=== PATIENT | female | born 1985 | race Caucasian/White ===

== ENCOUNTER 2019-03-23 21:26 | Emergency (ER) | payer OTHER ==
--- NOTE | 2019-03-23 21:49 | ER Document Report ---
ED Medical Screen (RME) - General Chief Complaint: Alcohol Withdrawl Stated Complaint: ALCOHOL WITHDRAWAL Time Seen by Provider: 03/23/19 21:45 Mode of Arrival: Ambulatory Information source: Patient Notes: 33-year-old female presents with history of alcohol abuse. Reports she was stable here for many years and relapsed 4 days ago and used meth also. Patient is calm reports she drank today approximately 5th of vodka. Last drink was at 2030.. Denies other past medical history such as asthma cardiac disease diabetes. Denies vomiting diarrhea. Reports she is having trouble resting. Heart feels like it is racing. I have greeted and performed a rapid initial assessment of this patient. A comprehensive ED assessment and evaluation of the patient, analysis of test results and completion of the medical decision making process will be conducted by additional ED providers. Dictation of this chart was performed using voice recognition software; therefore, there may be some unintended grammatical errors. - Related Data Allergies/Adverse Reactions: No Known Allergies Allergy (Verified 03/23/19 21:45) Physical Exam - Vital signs Vitals: Temp Pulse Resp BP Pulse Ox 98.0 F 121 H 18 132/94 H 97 03/23/19 21:42 03/23/19 21:42 03/23/19 21:42 03/23/19 21:42 03/23/19 21:42 Course - Vital Signs Vital signs: Temp Pulse Resp BP Pulse Ox 98.0 F 121 H 18 132/94 H 97 03/23/19 21:42 03/23/19 21:42 03/23/19 21:42 03/23/19 21:42 03/23/19 21:42
[2019-03-23 22:24] LABS: ABSOLUTE EOSINOPHILS # (AUTO) 0.1 10^3/uL (0.0-0.6); ABSOLUTE LYMPHOCYTES (AUTO) 2.6 10^3/uL (0.5-4.7); ABSOLUTE MONOCYTES (AUTO) 0.6 10^3/uL (0.1-1.4); ABSOLUTE NEUT (AUTO) 6.1 10^3/uL (1.7-8.2); BASOPHILS % (AUTO) 0.5 % (0-2); EOSINOPHILS % (AUTO) 0.9 % (0-6); HEMATOCRIT 43.4 % (36.0-47.0); LYMPHOCYTES % (AUTO) 28.1 % (13-45); MEAN CORPUSCULAR HEMOGLOBIN 32.1 pg (27.0-33.4); MEAN CORPUSCULAR HGB CONC 34.6 g/dL (32.0-36.0); MEAN CORPUSCULAR VOLUME 93 fl (80-97); PLATELET COUNT 266 10^3/uL (150-450); RED BLOOD COUNT 4.68 10^6/uL (3.72-5.28); RED CELL DISTRIBUTION WIDTH 13.7 % (11.5-14.0); SEGMENTED NEUTROPHILS % (AUTO) 64.5 % (42-78); TOTAL CELLS COUNTED % (AUTO) 100 %; WHITE BLOOD COUNT 9.4 10^3/uL (4.0-10.5)
[2019-03-23] MEDS ORDERED: LORAZEPAM INJ 2 MG/1 ML VIAL IV ONE (22:25)
[2019-03-23] MEDS ORDERED: NORMAL SALINE 1000 ML 1,000 ML IV ONE (22:25)
--- NOTE | 2019-03-23 22:27 | ER Document Report ---
ED Substance Abuse / Acc. OD - General Chief Complaint: ETOH Abuse Stated Complaint: ALCOHOL WITHDRAWAL Time Seen by Provider: 03/23/19 21:45 Mode of Arrival: Ambulatory Notes: Patient is a 33-year-old female that comes to the emergency department for chief complaint of substance abuse. She states that she has a history of alcohol abuse, she states that 4 days ago she relapsed and started drinking, she states that she is intoxicated over the past day and made the mistake of smoking meth, she states she has never used meth before, she states that she started getting sensation of her heart racing and tingling in her hands and became concerned. She also states she got nauseated. She denies chest pain, difficulty breathing, vomiting, fever. She denies ever using IV drugs. She states she is never used recreational drugs previously to this. She states she does have a sponsor and she has been extremely successful with not drinking. She states she drank because she feels empowered when she does so, she states she was not depressed or suicidal, she states she has never attempted suicide, she denies history of mental illness, she just tells me she has a history of alcohol dependence. She states the last time she relapsed she was able to get on Librium and successfully got off alcohol for a long extended period of time. She states she does take Zoloft but she denies medications otherwise. She denies . - Related Data Allergies/Adverse Reactions: No Known Allergies Allergy (Verified 03/23/19 21:45) Past Medical History - General Information source: Patient - Social History Smoking Status: Current Every Day Smoker Frequency of alcohol use: Heavy Drug Abuse: Methamphetamine Lives with: Friend Family History: Reviewed & Not Pertinent Patient has suicidal ideation: No Patient has homicidal ideation: No - Immunizations Immunizations up to date: Yes Hx Diphtheria, Pertussis, Tetanus Vaccination: Yes Review of Systems - Review of Systems Constitutional: See HPI EENT: No symptoms reported Cardiovascular: See HPI Respiratory: No symptoms reported Gastrointestinal: No symptoms reported Genitourinary: No symptoms reported Female Genitourinary: No symptoms reported Musculoskeletal: No symptoms reported Skin: No symptoms reported Hematologic/Lymphatic: No symptoms reported Neurological/Psychological: See HPI Physical Exam - Vital signs Vitals: Temp Pulse Resp BP Pulse Ox 98.0 F 121 H 18 132/94 H 97 03/23/19 21:42 03/23/19 21:42 03/23/19 21:42 03/23/19 21:42 03/23/19 21:42 - Notes Notes: GENERAL: Alert, interacts well. Slightly anxious but is not in distress HEAD: Normocephalic, atraumatic. EYES: Pupils equal, round, and reactive to light. Extraocular movements intact. ENT: Oral mucosa moist, tongue midline. Oropharynx unremarkable. Airway patent. NECK: Full range of motion. Supple. Trachea midline. LUNGS: Clear to auscultation bilaterally, no wheezes, rales, or rhonchi. No respiratory distress. HEART: Tachycardia but normal. No murmur ABDOMEN: Soft, non-tender. Non-distended. Bowel sounds present in all 4 quadrants. GENITOURINARY: Deferred EXTREMITIES: Moves all 4 extremities spontaneously. No edema, normal radial and dorsalis pedis pulses bilaterally. No cyanosis. BACK: no cervical, thoracic, lumbar midline tenderness. No saddle anesthesia, normal distal neurovascular exam. Moves all extremities in full range of motion. NEUROLOGICAL: Alert and oriented x3. Normal speech. Cranial nerves II through XII grossly intact. PSYCH: Slightly anxious and talks rapidly SKIN: Warm, dry, normal turgor. No rashes or lesions noted. Course - Re-evaluation Re-evalutation: Patient reporting some palpitations and tingling sensation in her hands. I suspect this is from the methamphetamine use from earlier. Patient is tachycardic. She is actually very well-appearing, well-dressed, she does not appear to have any chronic substance abuse problems, she is actually very apologetic and embarrassed about her situation. She emphatically denies suicidal ideations or homicidal ideations, she states that she really just wants to make sure she is okay and replaced back on the Librium so she can get back on the right track and not be drinking any alcohol. After Ativan and IV fluids tachycardia resolved. Patient reevaluated and is very well-appearing. She was sleeping but easily aroused, ambulated without any difficulty. She is requesting to leave. CBC, chemistry, lipase, EKG, general work-up without concerning findings. Patient placed on Librium, she states she does have good follow-up with her provider who provides her SSRIs, discussed return precautions. Patient is going home with family member. Patient stable at time of discharge. - Vital Signs Vital signs: Temp Pulse Resp BP Pulse Ox 97.8 F 91 17 115/72 99 03/24/19 04:07 03/24/19 04:07 03/24/19 04:07 03/24/19 04:07 03/24/19 04:07 - Laboratory Result Diagrams: 03/23/19 22:06 03/23/19 22:06 Laboratory results interpreted by me: 03/23/19 03/23/19 22:06 22:06 Urine Blood LARGE H Salicylates < 1.0 L Acetaminophen < 10 L Discharge - Discharge Clinical Impression: Substance abuse Alcohol dependence Qualifiers: Substance use status: unspecified alcohol-induced disorder Qualified Code(s): F10.29 - Alcohol dependence with unspecified alcohol-induced disorder Condition: Stable Disposition: HOME, SELF-CARE Additional Instructions: Your laboratory work-up and evaluation are reassuring. Your symptoms appear to be side effects of the recreational substance that you ingested. Avoid any recreational drugs. These are extremely dangerous and continued use will lead to your . Take the Librium as prescribed for detox. Follow-up with your provider closely for additional evaluation management. Return for any concerning symptoms including vomiting, chest pain, fever, or if something is not right. Prescriptions: Chlordiazepoxide HCl [Librium 25 mg Capsule] 1 cap PO ASDIR PRN #25 capsule PRN Reason:
[2019-03-23 22:30] LABS: APPEARANCE,URINE SLIGHTLY-CLOUDY; BILIRUBIN,URINE NEGATIVE (NEGATIVE); COLOR,URINE YELLOW; GLUCOSE, URINE NEGATIVE (NEGATIVE); KETONES,URINE NEGATIVE (NEGATIVE); LEUKOCYTE ESTERASE,URINE NEGATIVE (NEGATIVE); NITRITE,URINE NEGATIVE (NEGATIVE); PROTEIN,URINE NEGATIVE (NEGATIVE); UROBILINOGEN,URINE NEGATIVE mg/dL (<2.0)
[2019-03-23 22:41] LABS: URINE BARBITURATES SCREEN NEGATIVE; URINE BENZODIAZEPINES SCREEN NEGATIVE; URINE COCAINE SCREEN NEGATIVE; URINE MARIJUANA (THC) SCREEN NEGATIVE; URINE METHADONE SCREEN NEGATIVE; URINE PHENCYCLIDINE SCREEN NEGATIVE
[2019-03-23 22:42] LABS: ALCOHOL 195 mg/dL (NONE DETECTED); ALKALINE PHOSPHATASE 85 U/L (38-126); ANION GAP 14 (5-19); ASPARTATE AMINO TRANSFERASE 29 U/L (14-36); BILIRUBIN,DIRECT 0.2 mg/dL (0.0-0.4); BILIRUBIN,TOTAL 0.3 mg/dL (0.2-1.3); BLOOD UREA NITROGEN 12 mg/dL (7-20); CALCIUM 9.6 mg/dL (8.4-10.2); CARBON DIOXIDE 25 mmol/L (22-30); CHLORIDE 105 mmol/L (98-107); GLUCOSE 101 mg/dL (75-110); POTASSIUM 3.6 mmol/L (3.6-5.0); TOTAL PROTEIN 7.6 g/dL (6.3-8.2)
[2019-03-23 22:43] LABS: ACETAMINOPHEN < 10 ug/mL (10-30); SALICYLATE < 1.0 mg/dL (2.0-20.0)
[2019-03-24 04:08] VITALS: BP 115/72
--- NOTE | 2019-03-24 09:13 | EKG REPORT ---
SEVERITY:- NORMAL ECG - SINUS RHYTHM : Confirmed by: Mayra Rosales 24-Mar-2019 09:11:26
== END 2019-03-24 04:08 | disposition home or self-care (01) ==
LOC: ER 21:26
DX: F10.29 Alcohol dependence with unspecified alcohol-induced disorder (principal); F19.10 Other psychoactive substance abuse, uncomplicated; F17.200 Nicotine dependence, unspecified, uncomplicated
CPT/HCPCS: 93005; 99285; 96361; 96374; 36415; 80307 ×4; 83690; 84703; 85025; 80053; 81001; 93010; J2060; J7030

== ENCOUNTER 2019-11-04 16:57 | Emergency (ER) | payer MEDICAID, OTHER ==
[2019-11-04 17:05] VITALS: BP 130/90
[2019-11-04] MEDS ORDERED: MAG HYDROX/AL HYDROX/SIMETH SUSP 30 ML UDCUP PO ONE (17:27)
[2019-11-04] MEDS ORDERED: METOCLOPRAMIDE HCL ORAL SOLN 10 MG/10 ML UDCUP PO ONE (17:27)
[2019-11-04] MEDS ORDERED: LIDOCAINE 2% VISCOUS SOLN 15 ML UDCUP PO ONE (17:27)
--- NOTE | 2019-11-04 17:31 | ER Document Report ---
ED Medical Screen (RME) - General Stated Complaint: GENERAL WEAKNESS Time Seen by Provider: 11/04/19 17:23 Mode of Arrival: Wheelchair Information source: Patient Notes: 34-year-old female presents to the emergency department for chronic alcoholism, hematuria, abdominal pain and chest pain. Patient reports the chest pain feels like heartburn which she has had for several days. Patient drinks approximately 1/5 to half gallon of vodka every day for the past 11/2 years. Denies drug abuse. She went to [place] but it was noted that she had an elevated heart rate and hematuria, so she was advised to come to the ED. patient admits that she has been drinking today but is alert and oriented called does not appear intoxicated. Patient reports she is a functioning alcoholic I have greeted and performed a rapid initial assessment of this patient. A comprehensive ED assessment and evaluation of the patient, analysis of test results and completion of the medical decision making process will be conducted by additional ED providers. - Related Data Allergies/Adverse Reactions: No Known Allergies Allergy (Verified 03/23/19 21:45) Past Medical History Psychiatric Medical History: Reports: Hx Depression - Immunizations Immunizations up to date: Yes Hx Diphtheria, Pertussis, Tetanus Vaccination: Yes Physical Exam - Vital signs Vitals: Temp Pulse Resp BP Pulse Ox 98.2 F 117 H 20 130/90 H 97 11/04/19 17:11/04/19 17:03 11/04/19 17:03 11/04/19 17:03 11/04/19 17:03 Course - Vital Signs Vital signs: Temp Pulse Resp BP Pulse Ox 98.2 F 117 H 20 130/90 H 97 11/04/19 17:11/04/19 17:03 11/04/19 17:03 11/04/19 17:03 11/04/19 17:03
--- NOTE | 2019-11-04 18:00 | RADIOLOGY REPORT (SQ) ---
EXAM DESCRIPTION: CHEST SINGLE VIEW IMAGES COMPLETED DATE/TIME: 11/04/2019 5:49 pm REASON FOR STUDY: cp COMPARISON: None. EXAM PARAMETERS: NUMBER OF VIEWS: One view. TECHNIQUE: Single frontal radiographic view of the chest acquired. RADIATION DOSE: NA LIMITATIONS: None. FINDINGS: LUNGS AND PLEURA: No opacities, masses or pneumothorax. No pleural effusion. MEDIASTINUM AND HILAR STRUCTURES: No masses. Contour normal. HEART AND VASCULAR STRUCTURES: Heart normal in size. Normal vasculature. BONES: No acute findings. HARDWARE: None in the chest. OTHER: No other significant finding. IMPRESSION: NO ACUTE RADIOGRAPHIC FINDING IN THE CHEST. TECHNICAL DOCUMENTATION: JOB ID: [id number] 2010 [employer]- All Rights Reserved Reading location - IP/workstation name: [email or web address]
[2019-11-04 18:21] LABS: ABSOLUTE EOSINOPHILS # (AUTO) 0.1 10^3/uL (0.0-0.6); ABSOLUTE MONOCYTES (AUTO) 0.6 10^3/uL (0.1-1.4); MONOCYTES % (AUTO) 9.1 % (3-13); TOTAL CELLS COUNTED % (AUTO) 100 %
[2019-11-04 18:29] LABS: ABSOLUTE BASOPHILS # (AUTO) 0.1 10^3/uL (0.0-0.2); ABSOLUTE LYMPHOCYTES (AUTO) 2.3 10^3/uL (0.5-4.7); ABSOLUTE NEUT (AUTO) 3.3 10^3/uL (1.7-8.2); BASOPHILS % (AUTO) 0.8 % (0-2); HEMATOCRIT 42.2 % (36.0-47.0); HEMOGLOBIN 15.3 g/dL (12.0-15.5); LYMPHOCYTES % (AUTO) 36.3 % (13-45); MEAN CORPUSCULAR HEMOGLOBIN 35.1 pg (27.0-33.4); MEAN CORPUSCULAR HGB CONC 36.2 g/dL (32.0-36.0); MEAN CORPUSCULAR VOLUME 97 fl (80-97); PLATELET COUNT 287 10^3/uL (150-450); RED BLOOD COUNT 4.35 10^6/uL (3.72-5.28); RED CELL DISTRIBUTION WIDTH 14.6 % (11.5-14.0); SEGMENTED NEUTROPHILS % (AUTO) 52.8 % (42-78); WHITE BLOOD COUNT 6.3 10^3/uL (4.0-10.5)
[2019-11-04 18:34] LABS: APPEARANCE,URINE CLOUDY; BILIRUBIN,URINE NEGATIVE (NEGATIVE); CALCIUM OXALATE CRYSTALS,URINE MODERATE /HPF; GLUCOSE, URINE NEGATIVE (NEGATIVE); KETONES,URINE NEGATIVE (NEGATIVE); LEUKOCYTE ESTERASE,URINE MODERATE (NEGATIVE); NITRITE,URINE POSITIVE (NEGATIVE); PROTEIN,URINE 100 mg/dL (NEGATIVE); URINE SPECIFIC GRAVITY 1.024; UROBILINOGEN,URINE NEGATIVE mg/dL (<2.0)
[2019-11-04 18:35] LABS: COLOR,URINE YELLOW
[2019-11-04 18:37] LABS: ALBUMIN 5.2 g/dL (3.5-5.0); ALCOHOL 232 mg/dL (NONE DETECTED); ALKALINE PHOSPHATASE 96 U/L (38-126); ANION GAP 11 (5-19); ASPARTATE AMINO TRANSFERASE 37 U/L (14-36); BILIRUBIN,TOTAL 0.3 mg/dL (0.2-1.3); BLOOD UREA NITROGEN 17 mg/dL (7-20); CALCIUM 9.2 mg/dL (8.4-10.2); CARBON DIOXIDE 24 mmol/L (22-30); CHLORIDE 109 mmol/L (98-107); GLUCOSE 104 mg/dL (75-110); POTASSIUM 4.4 mmol/L (3.6-5.0); TOTAL PROTEIN 8.1 g/dL (6.3-8.2)
[2019-11-04 18:38] LABS: ACETAMINOPHEN < 10 ug/mL (10-30); SALICYLATE < 1.0 mg/dL (2.0-20.0)
[2019-11-04 18:40] LABS: URINE AMPHETAMINES SCREEN NEGATIVE; URINE BARBITURATES SCREEN NEGATIVE; URINE BENZODIAZEPINES SCREEN NEGATIVE; URINE COCAINE SCREEN NEGATIVE; URINE MARIJUANA (THC) SCREEN NEGATIVE; URINE METHADONE SCREEN NEGATIVE; URINE PHENCYCLIDINE SCREEN NEGATIVE
--- NOTE | 2019-11-04 21:36 | EKG REPORT ---
SEVERITY:- OTHERWISE NORMAL ECG - SINUS TACHYCARDIA : Confirmed by: Med Zaragoza MD 04-Nov-2019 21:35:33
== END 2019-11-04 19:06 | disposition left against medical advice (07) ==
LOC: ER 16:57
DX: R53.1 Weakness (principal); R31.9 Hematuria, unspecified; R10.9 Unspecified abdominal pain; R07.9 Chest pain, unspecified
CPT/HCPCS: 36415; 71045; 80053; 80307; 81001; 84703; 85025; 93005; 93010; 99281

== ENCOUNTER 2019-11-04 20:03 | Emergency (ER) | payer MEDICAID ==
[2019-11-04 20:10] VITALS: BP 149/97
== END 2019-11-04 20:35 | disposition left against medical advice (07) ==
LOC: ER 20:03
DX: Z53.21 Procedure and treatment not carried out due to patient leaving prior to being seen by health care provider (principal)

== ENCOUNTER 2019-11-04 21:56 | Emergency (ER) | payer MEDICAID ==
[2019-11-04 22:14] VITALS: BP 123/79
--- NOTE | 2019-11-04 22:40 | ER Document Report ---
ED Substance Abuse / Acc. OD - General Chief Complaint: ETOH Abuse Stated Complaint: ETOH Time Seen by Provider: 11/04/19 22:38 Primary Care Provider: KAYLYNN ROBERTS FNP [Primary Care Provider] - Follow up as needed Mode of Arrival: Ambulatory Information source: Patient Notes: 34-year-old female past medical history significant for substance abuse presents to the emergency room requesting medical clearance so that she can go to [facility] patient states she went there for detox and her urine was noted to be very dark and bloody so she was sent to the emergency room. Patient states she had a previous history of alcohol abuse she had been sober for 10 years and started drinking again about a year and half ago. States she has been drinking off and on for the past 2 weeks. States she drank about half a gallon of vodka daily when she does drinks. Recently drank yesterday. States that she is noticed hematuria for the past 3 days. Also complains of bilateral flank and generalized abdominal pain. Describes the pain as cramping and sharp at times. Denies fevers. No nausea, no vomiting. - Related Data Allergies/Adverse Reactions: No Known Allergies Allergy (Verified 03/23/19 21:45) Past Medical History - General Information source: Patient - Social History Smoking Status: Current Every Day Smoker Frequency of alcohol use: Heavy Drug Abuse: Methamphetamine Lives with: Family Family History: Reviewed & Not Pertinent Patient has homicidal ideation: No Psychiatric Medical History: Reports: Hx Depression - Immunizations Immunizations up to date: Yes Hx Diphtheria, Pertussis, Tetanus Vaccination: Yes Review of Systems - Review of Systems Constitutional: No symptoms reported EENT: No symptoms reported Cardiovascular: No symptoms reported Respiratory: No symptoms reported Gastrointestinal: Abdominal pain. denies: Nausea, Vomiting Genitourinary: Flank pain, Hematuria Female Genitourinary: denies: Vaginal discharge Musculoskeletal: No symptoms reported Neurological/Psychological: No symptoms reported -: Yes All other systems reviewed and negative Physical Exam - Vital signs Vitals: Temp 98.0 F 11/04/19 22:06 - General General appearance: Appears well, Alert In distress: Mild - HEENT Head: Normocephalic, Atraumatic Eyes: Normal Pupils: PERRL - Respiratory Respiratory status: No respiratory distress Chest status: Nontender Breath sounds: Normal Chest palpation: Normal - Cardiovascular Rhythm: Tachycardia Heart sounds: Normal auscultation Murmur: No Friction rub: No - Abdominal Inspection: Normal Distension: No distension Bowel sounds: Normal Tenderness: Tender - Generalized diffuse abdominal pain.. No: Guarding, Rebound Organomegaly: No organomegaly - Back Back: CVA tenderness - Bilateral. No: Vertebra tenderness - Neurological Neuro grossly intact: Yes Cognition: Normal Orientation: AAOx4 Deanna Coma Scale Eye Opening: Spontaneous Deanna Coma Scale Verbal: Oriented [place] Coma Scale Motor: Obeys Commands Deanna Coma Scale Total: 15 Speech: Normal Motor strength normal: LUE, RUE, LLE, RLE Sensory: Normal - Psychological Associated symptoms: Normal affect. No: Decreased appetite, Depressed, Flat affect, Flight of ideas, Paranoid, Restlessness, Uncooperative - Skin Skin Temperature: Warm Skin Moisture: Dry Skin Color: Normal Course - Re-evaluation Re-evalutation: 11/05/19 00:31 Patient is resting comfortably she is afebrile, she is nontoxic-appearing, reviewed all lab and CAT scan results with patient. She is currently pain-free on exam. Patient was given IV Rocephin for her UTI. Discussed kidney stone with her. Patient will be kept overnight to monitor for EtOH withdrawal. PRN Ativan ordered. Patient is agreeable to stay in the emergency room secondary to her elevated alcohol level. 11/05/19 00:38 11/05/19 00:51 Was notified by nurse that patient became upset and wanted to go smoke, patient pulled out her IV and left the emergency room prior to receiving Ativan. - Vital Signs Vital signs: Temp Pulse Resp BP Pulse Ox 98.0 F 117 H 18 123/79 97 11/04/19 22:12 11/04/19 22:12 11/04/19 22:12 11/04/19 22:12 11/04/19 22:12 - Diagnostic Test Radiology reviewed: Reports reviewed Discharge - Discharge Clinical Impression: ETOH abuse, Right kidney stone UTI (urinary tract infection) Qualifiers: Urinary tract infection type: acute cystitis Hematuria presence: with hematuria Qualified Code(s): N30.01 - Acute cystitis with hematuria Condition: Stable Disposition: ELOPED Referrals: KAYLYNN ROBERTS FNP [Primary Care Provider] - Follow up as needed
[2019-11-04] MEDS ORDERED: RINGERS SOLUTION,LACTATED 1,000 ML IV ONE (22:53)
[2019-11-04] MEDS ORDERED: CEFTRIAXONE INJ 1000 MG VIAL IV ONE (23:04)
--- NOTE | 2019-11-05 00:08 | RADIOLOGY REPORT (SQ) ---
EXAM DESCRIPTION: CT ABDOMEN PELVIS WITH IV CONTRAST COMPLETED DATE/TME: 11/04/2019 22:52 CLINICAL INDICATION: 34-year-old female with RIGHT lower quadrant and LEFT lower quadrant flank pain. COMPARISON: None. EXAMINATION: CT of the abdomen and pelvis was performed following intravenous administration of contrast. Oral contrast was not administered. Multiplanar reformatted images were provided. This exam was performed according to our departmental dose optimization program which includes use of automated exposure control, adjustment of the mA and/or kV according to patient size and/or use of iterative reconstruction technique. FINDINGS: Chest: Evaluation through the lung bases reveals no focal opacity, pleural effusion or pneumothorax. Heart size is within normal limits. No pericardial effusion. Abdomen and pelvis: The liver, gallbladder, pancreas, spleen, bilateral kidneys and bilateral adrenal glands are within normal limits. Nonobstructing 2 mm calculus present within the lower pole of the RIGHT kidney. The vessels are patent and normal in caliber. No abdominopelvic lymph nodes are noted to be pathologically enlarged by CT measurement criteria. The bowel is within normal limits without abnormal bowel wall thickness or bowel dilation. No free air. No free abdominopelvic fluid collections. The appendix is within normal limits. The osseous structures are within normal limits. IMPRESSION: 1. No specific acute intra-abdominal findings are noted to suggest etiology of the patient's abdominal pain. 2. Nonobstructing 2 mm calculus within the lower pole of the RIGHT kidney.
[2019-11-05 00:22] LABS: URINE AMPHETAMINES SCREEN NEGATIVE; URINE BARBITURATES SCREEN NEGATIVE; URINE BENZODIAZEPINES SCREEN NEGATIVE; URINE COCAINE SCREEN NEGATIVE; URINE MARIJUANA (THC) SCREEN NEGATIVE; URINE METHADONE SCREEN NEGATIVE; URINE PHENCYCLIDINE SCREEN NEGATIVE
[2019-11-05] MEDS: LORAZEPAM INJ 2 MG/1 ML VIAL IV ONE ×2 (00:41→00:49)
== END 2019-11-05 00:45 | disposition left against medical advice (07) ==
LOC: ER 21:56
DX: N20.0 Calculus of kidney (principal); N30.01 Acute cystitis with hematuria; R10.84 Generalized abdominal pain; F10.10 Alcohol abuse, uncomplicated; F17.200 Nicotine dependence, unspecified, uncomplicated
CPT/HCPCS: 99281; 96361; 96374; 36415; 87040; 80307 ×2; 74177; J0696; J7120; J2060

== ENCOUNTER 2019-11-05 09:53 | Emergency (ER) | payer MEDICAID ==
[2019-11-05] MEDS ORDERED: ONDANSETRON 4 MG TAB.RAPDIS PO ONE (10:08)
--- NOTE | 2019-11-05 10:11 | ER Document Report ---
ED Medical Screen (RME) - General Mode of Arrival: Wheelchair Information source: Patient - General Chief Complaint: Medical Clearance Stated Complaint: MEDICAL CLEARANCE Time Seen by Provider: 11/05/19 09:57 Primary Care Provider: KAYLYNN ROBERTS FNP [Primary Care Provider] - Follow up as needed Notes: 34-year-old female with history of EtOH abuse [facility] Patient was evaluated twice yesterday for same complaint. She eloped both times. During her visit she was noted to have a UTI and kidney stones. She received IV Rocephin. Patient is very apologetic. Reports she has not had anything to drink today. She usually drinks up to 1/5 of vodka a day. She is very shaky. Reports she is very nauseated and is dry heaving. She complains of right flank pain and hematuria. I have greeted and performed a rapid initial assessment of this patient. A comprehensive ED assessment and evaluation of the patient, analysis of test results and completion of the medical decision making process will be conducted by additional ED providers. ([place]) - Related Data Allergies/Adverse Reactions: No Known Allergies Allergy (Verified 03/23/19 21:45) Past Medical History Psychiatric Medical History: Reports: Hx Depression - Immunizations Immunizations up to date: Yes Hx Diphtheria, Pertussis, Tetanus Vaccination: Yes Physical Exam - Vital signs Vitals: Temp 97.7 F 11/05/19 09:53 Course - Vital Signs Vital signs: Temp Pulse Resp BP Pulse Ox 97.7 F 110 H 20 144/90 H 99 11/05/19 09:58 11/05/19 09:58 11/05/19 09:58 11/05/19 09:58 11/05/19 09:58 Doctor's Discharge - Discharge Referrals: KAYLYNN ROBERTS FNP [Primary Care Provider] - Follow up as needed
[2019-11-05 10:26] LABS: ABSOLUTE LYMPHOCYTES (AUTO) 1.4 10^3/uL (0.5-4.7); ABSOLUTE MONOCYTES (AUTO) 0.6 10^3/uL (0.1-1.4); ABSOLUTE NEUT (AUTO) 5.4 10^3/uL (1.7-8.2); BASOPHILS % (AUTO) 0.5 % (0-2); EOSINOPHILS % (AUTO) 0.6 % (0-6); HEMATOCRIT 41.7 % (36.0-47.0); HEMOGLOBIN 14.8 g/dL (12.0-15.5); LYMPHOCYTES % (AUTO) 19.3 % (13-45); MEAN CORPUSCULAR HEMOGLOBIN 34.7 pg (27.0-33.4); MEAN CORPUSCULAR HGB CONC 35.6 g/dL (32.0-36.0); MEAN CORPUSCULAR VOLUME 98 fl (80-97); MONOCYTES % (AUTO) 7.9 % (3-13); PLATELET COUNT 259 10^3/uL (150-450); RED BLOOD COUNT 4.28 10^6/uL (3.72-5.28); RED CELL DISTRIBUTION WIDTH 14.6 % (11.5-14.0); SEGMENTED NEUTROPHILS % (AUTO) 71.7 % (42-78); TOTAL CELLS COUNTED % (AUTO) 100 %; WHITE BLOOD COUNT 7.5 10^3/uL (4.0-10.5)
[2019-11-05] MEDS ORDERED: LEVOFLOXACIN 750 MG TABLET PO ONE (10:37)
[2019-11-05 10:45] LABS: ALBUMIN 4.9 g/dL (3.5-5.0); ALKALINE PHOSPHATASE 100 U/L (38-126); ANION GAP 9 (5-19); ASPARTATE AMINO TRANSFERASE 36 U/L (14-36); BILIRUBIN,TOTAL 0.7 mg/dL (0.2-1.3); BLOOD UREA NITROGEN 15 mg/dL (7-20); CARBON DIOXIDE 27 mmol/L (22-30); CHLORIDE 105 mmol/L (98-107); GLUCOSE 90 mg/dL (75-110); POTASSIUM 4.4 mmol/L (3.6-5.0); TOTAL PROTEIN 7.7 g/dL (6.3-8.2)
[2019-11-05 10:46] LABS: ALCOHOL < 10 mg/dL (NONE DETECTED)
[2019-11-05 10:47] LABS: APPEARANCE,URINE CLOUDY; BILIRUBIN,URINE NEGATIVE (NEGATIVE); COLOR,URINE YELLOW; GLUCOSE, URINE NEGATIVE (NEGATIVE); KETONES,URINE NEGATIVE (NEGATIVE); LEUKOCYTE ESTERASE,URINE MODERATE (NEGATIVE); NITRITE,URINE NEGATIVE (NEGATIVE); PROTEIN,URINE 100 mg/dL (NEGATIVE); UROBILINOGEN,URINE NEGATIVE mg/dL (<2.0)
[2019-11-05] MEDS ORDERED: LORAZEPAM 0.5 MG TABLET PO ONE (10:54)
--- NOTE | 2019-11-05 10:54 | ER Document Report ---
ED General - General Chief Complaint: Medical Clearance Stated Complaint: MEDICAL CLEARANCE Time Seen by Provider: 11/05/19 09:57 Primary Care Provider: KAYLYNN ROBERTS FNP [Primary Care Provider] - Follow up as needed Mode of Arrival: Wheelchair Information source: Patient TRAVEL OUTSIDE OF THE [place] IN LAST 30 DAYS: No - HPI Onset: Other - over the last 1.5 weeks Onset/Duration: Gradual Quality of pain: Achy - on right flank Severity: Mild Pain Level: 1 Associated symptoms: Other - shaky. denies: Chills, Fever Exacerbated by: Denies Relieved by: Denies Similar symptoms previously: Yes - with prior alcohol binges Recently seen / treated by doctor: Yes - patient seen in this ER yesterday but eloped Notes: 34 year old female with a history of Alcohol Abuse (patient currently on a 1.5 week binge) here in the ER for medical clearance prior to going to [place] for detox. The patient seen and evaluated in this ER yesterday for the same but she ended up eloping. The patient was also diagnosed with a kidney stone (intrarenal) and a UTI yesterday. The patient was given a shot of Rocephin yesterday but she is not currently on an antibiotic. The patient is feeling a little shaky today and she says her last drink was yesterday. The patient says she has had one withdrawal seizure in her life. The patient usually drinks about 1/5 of Vodka a day when she is on her binges. - Related Data Allergies/Adverse Reactions: No Known Allergies Allergy (Verified 03/23/19 21:45) Past Medical History - General Information source: Patient - Social History Smoking Status: Current Every Day Smoker Chew tobacco use (# tins/day): No Frequency of alcohol use: Heavy Drug Abuse: None Family History: Reviewed & Not Pertinent Patient has homicidal ideation: No Psychiatric Medical History: Reports: Hx Depression - Immunizations Immunizations up to date: Yes Hx Diphtheria, Pertussis, Tetanus Vaccination: Yes Review of Systems - Review of Systems Constitutional: No symptoms reported EENT: No symptoms reported Cardiovascular: No symptoms reported Respiratory: No symptoms reported Gastrointestinal: No symptoms reported Genitourinary: Dysuria, Frequency, Flank pain - right sided Female Genitourinary: No symptoms reported Musculoskeletal: No symptoms reported Skin: No symptoms reported Hematologic/Lymphatic: No symptoms reported Neurological/Psychological: No symptoms reported Physical Exam - Vital signs Vitals: Temp 97.7 F 11/05/19 09:53 - Notes Notes: GENERAL: Well-appearing, well-nourished and in no acute distress. HEAD: Atraumatic, normocephalic. EYES: Pupils equal round and reactive to light, extraocular movements intact, sclera anicteric, conjunctiva are normal. ENT: External Ears normal, nares patent, oropharynx clear without exudates. Moist mucous membranes. NECK: Normal range of motion, supple without lymphadenopathy or JVD. LUNGS: Breath sounds clear to auscultation bilaterally and equal. No wheezes rales or rhonchi. HEART: Regular rate and rhythm without murmurs, rubs or gallops. ABDOMEN: Soft, nontender, normoactive bowel sounds. No guarding, no rebound. No masses appreciated. EXTREMITIES: Normal range of motion, no pitting or edema. No clubbing or cyanosis. NEUROLOGICAL: Cranial nerves II through XII grossly intact. Normal speech, normal gait. PSYCH: Normal mood, normal affect. SKIN: Warm, Dry, normal turgor, no rashes or lesions noted. Course - Re-evaluation Re-evalutation: 11/05/19 10:56 The patient is here for in the ER for medical clearance prior to going to [facility] alcohol detox. The patient feels somewhat shaky and was mildly tachycardic on ER arrival. Patient's labs unremarkable and her alcohol is zero. Patient given one dose of 0.5mg Ativan PO and she was discharged safely to [place] for rehab. Patient has a UTI with right flank pain so will treat her for possible pyelonephritis with a course of Levaquin. Patient has a right sided intrarenal kidney stone seen on CT yesterday but this is not an acute issue. 11/05/19 11:20 The patient requested Diflucan for after her Levaquin course and she also requested Valtrex since she is having a recurrent Herpes outbreak. Both were prescribed. - Vital Signs Vital signs: Temp Pulse Resp BP Pulse Ox 97.7 F 110 H 20 144/90 H 99 11/05/19 09:58 11/05/19 09:58 11/05/19 09:58 11/05/19 09:58 05/09/20 09:58 - Laboratory Result Diagrams: 11/05/19 10:15 11/05/19 10:15 Laboratory results interpreted by me: 11/05/19 11/05/19 10:15 10:30 MCV 98 H MCH 34.7 H RDW 14.6 H Urine Protein 100 H Urine Blood LARGE H Ur Leukocyte Esterase MODERATE H - Diagnostic Test Radiology reviewed: Image reviewed - 11/04/19, Reports reviewed - from 11/04/19 Discharge - Discharge Clinical Impression: Alcohol abuse UTI (urinary tract infection) Qualifiers: Urinary tract infection type: acute cystitis Hematuria presence: with hematuria Qualified Code(s): N30.01 - Acute cystitis with hematuria Condition: Stable Disposition: HOME, SELF-CARE Additional Instructions: Start taking Levaquin as prescribed on 11/06/19 for your UTI. Take Diflucan (anti-yeast medication) the day you take your last dose of Levaquin. Use Valtrex as prescribed for Herpes outbreaks. Go Directly to [place] for substance abuse treatment. Prescriptions: Fluconazole [Diflucan] 150 mg PO DAILY #1 tablet Levofloxacin [Levaquin 750 mg Tablet] 750 mg PO DAILY #5 tablet Valacyclovir HCl [Valtrex 500 Mg Tablet] 1,000 mg PO DAILY 5 Days #10 tablet Referrals: KAYLYNN ROBERTS FNP [Primary Care Provider] - Follow up as needed
[2019-11-05 11:02] LABS: URINE AMPHETAMINES SCREEN NEGATIVE; URINE BARBITURATES SCREEN NEGATIVE; URINE BENZODIAZEPINES SCREEN NEGATIVE; URINE COCAINE SCREEN NEGATIVE; URINE MARIJUANA (THC) SCREEN NEGATIVE; URINE METHADONE SCREEN NEGATIVE; URINE PHENCYCLIDINE SCREEN NEGATIVE
[2019-11-05 11:43] VITALS: BP 134/90
== END 2019-11-05 11:43 | disposition home or self-care (01) ==
LOC: ER 09:53
DX: F10.10 Alcohol abuse, uncomplicated (principal); N30.01 Acute cystitis with hematuria; B00.9 Herpesviral infection, unspecified; F17.200 Nicotine dependence, unspecified, uncomplicated
CPT/HCPCS: 99283; 36415; 87086; 80307 ×2; 85025; 80053; 81001; S0119; J3490